=== PATIENT | male | born 1965 | race Caucasian/White ===

== ENCOUNTER 2021-01-14 01:54 | Day surgery (SDC) | payer BC, SELFPAY ==
[2021-01-11 08:46] VITALS: BMI 31.2
[2021-01-14 09:55] VITALS: BMI 31.1
[2021-01-14] MEDS: LACTATED RINGERS 1,000 ML 150 ML IV CONT (10:19)
--- NOTE | 2021-01-14 10:22 | P.PNAN_ITS ---
Anes - Initial Pre Proc Eval Procedure: Operation Date: 01/14/21 10:30 Proposed Procedures p Colonoscopy - Jamin Cortes MD Date/Time: 01/14/21 10:22 Surgeon: Jamin Cortes MD Pre Op Diagnosis: melena, positive cologuard Patient Data Age: 56 Gender: M Height: 1.83 m Weight: 104 kg Allergies Allergy/AdvReac Type Severity Reaction Status Date / Time No Known Allergies Allergy Verified 01/14/21 09:53 Home Medications Medication Instructions Recorded Confirmed Type cetirizine [Zyrtec] 10 mg PO DAILY 01/11/21 01/11/21 History losartan 50 mg PO DAILY 01/11/21 01/11/21 History rosuvastatin 10 mg PO DAILY 01/11/21 01/14/21 History sildenafil 100 mg PO DAILY PRN 01/11/21 01/14/21 History Patient hx anesthesia problems: none Family hx anesthesia problems: none Results Review: All pre-operative results and documents have been reviewed as part of the pre-operative evaluation. [facility] Past Medical History Medical History (Updated 01/14/21 @ 10:13 by Rj Christensen MD) Hyperlipidemia Hypertension Social History Social History Smoking packs per day: 0.5 Smoking cigarettes per day: 10.0 Years smoked: 30 Smoking pack-years: 15.00 Tobacco type: cigarettes Alcohol intake: current Substance use type: marijuana Other substance usage details: Occasionally Living arrangements: with family Spiritual care concerns: No Anes - Eval Final PreProcedure Day of Procedure 01/14/21 10:22 Patient weight: obese Heart: regular rate and rhythm Lungs: clear to auscultation Airway: Mallampati scale class II Neurological: alert and oriented Last oral intake: >/= 8 hours ASA classification: II Emergent: no Anesthetic plan: proceed Anesthesia type and monitoring: general GIVS and standard monitoring Results Review: All pre-operative results and documents have been reviewed as part of the pre-operative evaluation. Informed Consent: The patient's anesthetic plan and its attendant risks and benefits were discussed with the patient/family/POA. Questions were solicited and answers provided to the satisfaction of the patient/family/POA.
--- NOTE | 2021-01-14 10:25 | WPDGICN ---
Assessment and Plan Assessment and plan (1) Positive colorectal cancer screening using Cologuard test: Code(s): R19.5 - Other fecal abnormalities Status: Acute Assessment and Plan: Screening colonoscopy will be performed because of Cologuard test positivity. Further recommendations will be given after endoscopy. GI Consult Note Consult date/time: 01/14/21 10:25 HPI: Nba Mccarthy is a 56 year old male Was found to have positive Cologuard test. Patient presents now for colonoscopy. He states that his weight appetite bowel movements are normal. He denies abdominal pain. He has had no bleeding. Family history is noncontributory. Past medical history is significant for some eczema on his skin. Review of Systems Review of Systems: All systems reviewed & are unremarkable except as noted in HPI and below PMFSH Past Medical History Medical History (Updated 01/14/21 @ 10:26 by Jamin Cortes MD) Hyperlipidemia Hypertension Social History Social History Smoking packs per day: 0.5 Smoking cigarettes per day: 10.0 Years smoked: 30 Smoking pack-years: 15.00 Tobacco type: cigarettes Alcohol intake: current Substance use type: marijuana Other substance usage details: Occasionally Living arrangements: with family Spiritual care concerns: No Meds Home Medications and Allergies Home Medications Medication Instructions Recorded Confirmed Type cetirizine [Zyrtec] 10 mg PO DAILY 01/11/21 01/11/21 History losartan 50 mg PO DAILY 01/11/21 01/11/21 History rosuvastatin 10 mg PO DAILY 01/11/21 01/14/21 History sildenafil 100 mg PO DAILY PRN 01/11/21 01/14/21 History Allergies Allergy/AdvReac Type Severity Reaction Status Date / Time No Known Allergies Allergy Verified 01/14/21 09:53 Exam Narrative: Physical exam reveals patient be alert. Vital signs stable. HEENT exam is unremarkable. Patient is anicteric. Lungs are clear to auscultation and percussion. Heart is without murmur or extra sounds. Abdominal exam bowel sounds are present soft nontender with no organomegaly. Digital external rectal exam is normal.
[2021-01-14 11:03] VITALS: BP 127/63; PULSE 87; RESP 24; O2SAT 94
[2021-01-14 11:13] VITALS: BP 124/85; PULSE 74; RESP 21; O2SAT 100
[2021-01-14 11:23] VITALS: BP 124/75; PULSE 68; RESP 20; O2SAT 100
== END 2021-01-14 11:35 | disposition home or self-care (01) ==
PROVIDERS: PCP Internal Medicine; Visit Provider Internal Medicine Gastroenterology
PROC: 0DJD8ZZ Inspection of Lower Intestinal Tract, Via Natural or Artificial Opening Endoscopic (ICD-10-PCS; CPT 45378; principal; 2021-01-14 10:30)
DX: R19.5 Other fecal abnormalities (principal); K63.5 Polyp of colon; K64.8 Other hemorrhoids; I10 Essential (primary) hypertension; E78.5 Hyperlipidemia, unspecified; F17.210 Nicotine dependence, cigarettes, uncomplicated; F12.90 Cannabis use, unspecified, uncomplicated; E66.9 Obesity, unspecified; Z68.31 Body mass index [BMI] 31.0-31.9, adult
CPT/HCPCS: 45385; 88305; J2704; J7120